=== PATIENT | male | born 1970 | race Caucasian/White ===

== ENCOUNTER 2016-10-10 20:58 | Emergency (ER) | payer MEDICAID ==
[~2016-10-10] VITALS: Ht 162.6 cm; Wt 59.6 kg
[2016-10-10 21:04] VITALS: BP 138/95
[2016-10-10] MEDS ORDERED: CEFAZOLIN 1,000 MG IM ONE (22:00)
[2016-10-10] MEDS ORDERED: BUPIVACAINE 0.25% ONE (22:22)
[2016-10-10] MEDS ORDERED: LIDOCAINE 1%, 20ML ONE (22:23)
[2016-10-10] MEDS ORDERED: LIDOCAINE 1%, 20ML SQ ONE (22:30)
[2016-10-10] MEDS ORDERED: BUPIVACAINE 0.25% INFIL ONE (22:30)
[2016-10-10 22:37] LABS: BLOOD UREA NITROGEN 12 mg/dL (7-18)
[2016-10-10] MEDS ORDERED: BACITRACIN ZINC OINT 500U/GM, 0.9 GM ONE (22:57)
== END 2016-10-10 23:40 | disposition home or self-care (01) ==
LOC: ED 23:34
DX: L03.011 Cellulitis of right finger (principal); I89.1 Lymphangitis; F17.210 Nicotine dependence, cigarettes, uncomplicated
CPT/HCPCS: 36415; 80048; 82040; 85025; 96372; 99284; J0690